=== PATIENT | female | born 1985 | race Hispanic/Latino ===

== ENCOUNTER 2018-05-16 14:56 | Outpatient (CLI) | payer OTHER ==
--- NOTE | 2018-05-16 19:30 | ULT ---
OBSTETRIC ULTRASOUND: 05/16/18 COMPARISON: None. HISTORY: 32-year-old female undergoing evaluation for anatomy. TECHNIQUE: Multiplanar coppola scale sonographic imaging of the gravid uterus obtained. FINDINGS: The cervix measures approximately 3.9-4 cm in length. A single intrauterine gestation is present dem onstrating a transverse presentation with heart to the maternal right. The placenta is located posteriorly, demonstrating no evidence for previa or abruption. The urinary bladder, umbilical cord, and umbilical cord insertion appear unremarkable. The feta l stomach, region of the kidneys, and four chamber heart view appear grossly unremarkable , partially obscured by motion. heart rate is 139 beats per minute. intracranial contents appear grossly unremarkable. Amniotic fluid index is 15.8 cm, within norm al limits. The spine appears unremarkable as well. nose and lips appear grossly unremarka ble. BIOMETRY: BPD 6.3 cm 25 weeks 2 days HC 22.9 cm 25 weeks 0 days AC 20.7 cm 25 weeks 2 days FL 4.7 cm 25 weeks 3 days Average age based on ultrasound is 25 weeks, 1 day. Estimated date of delivery is 08/28/18. Estimated weight is 793 grams plus/minus 117 grams. IMPRESSION: Single live intrauterine gestation as detailed above. POS: [facility]
== END 2018-05-16 14:57 | disposition home or self-care (01) ==
LOC: ULT 14:56
PROVIDERS: ATTEND Family Medicine
DX: O09.892 Supervision of other high risk pregnancies, second trimester (principal); Z3A.25 25 weeks gestation of pregnancy
CPT/HCPCS: 76805

== ENCOUNTER 2018-08-18 12:36 | Inpatient (IN) | payer OTHER, SELFPAY ==
[2018-08-18 13:16] VITALS: BMI 33.3
[2018-08-18] MEDS ORDERED: Ibuprofen 800 MG TAB PO PRN (13:16)
[2018-08-18] MEDS ORDERED: Lidocaine 1% (PF) 30 ML VIAL SC PRN (13:16)
[2018-08-18] MEDS ORDERED: Ondansetron PF 4 MG/2 ML Vial IVP PRN ×2 (13:16→15:58)
[2018-08-18] MEDS ORDERED: HYDROcodone/Acetaminophen 5/325 mg Tablet PO PRN ×3 (13:16→15:58)
[2018-08-18] MEDS ORDERED: NS w/ Oxytocin 10 units 500 ML IV SCH (13:16)
[2018-08-18] MEDS ORDERED: Promethazine HCl 25 MG/ML VIAL IM PRN (13:16)
[2018-08-18] MEDS ORDERED: Butorphanol Tartrate 1 MG/ML VIAL SLOW IVP PRN (13:16)
[2018-08-18] MEDS ORDERED: NS / Oxytocin 40 units/1000ml 1,000 ML IV PRN (13:16)
[2018-08-18] MEDS ORDERED: Butorphanol Tartrate 1 MG/ML VIAL ONE (13:17)
[2018-08-18 13:30] LABS: Hemoglobin 11.9 g/dL (12.0-16.0); Mean Corpuscular HGB CONC 31.7 g/dL (32.0-36.0); Mean Corpuscular Hemoglobin 28.3 pg (27.0-31.0); Mean Corpuscular Volume 89.5 fL (78.0-98.0); Mean Platelet Volume 8.8 fL (7.4-10.4); Platelet Count 224 thou/uL (130-400); RBC Distribution Width 13.8 % (11.5-14.5); Red Blood Cell (RBC) Count 4.19 mill/uL (4.20-5.40); White Blood Cell (WBC) Count 11.4 thou/uL (4.8-10.8)
[2018-08-18] MEDS ORDERED: Lactated Ringer's 1,000 ML IV SCH ×2 (13:30)
[2018-08-18] MEDS ORDERED: Misoprostol 200 MCG TAB ONE ×2 (13:53→16:57)
[2018-08-18] MEDS ORDERED: Carboprost 250 MCG/ML AMP ONE (13:53)
[2018-08-18] MEDS ORDERED: Methylergonovine 0.2 MG/ML VIAL ONE ×2 (13:54→17:30)
[2018-08-18 14:04] LABS: HBSAg Index 0.29 S/CO (0-0.99); Hep B Surf Ag Non-Reactive S/CO (NonReactive); Syphilis Antibody Nonreactive (Nonreactive); Syphilis Antibody Index 0.05 S/CO (<1.00 Non-Reactive)
[2018-08-18] MEDS ORDERED: Bisacodyl 10 MG SUPP PR PRN (15:58)
[2018-08-18] MEDS ORDERED: Benzocaine/Menthol 20-0.5% 60 ML CAN TOP PRN (15:58)
[2018-08-18] MEDS ORDERED: NS / Oxytocin 40 units/1000ml 1,000 ML IV SCH (15:58)
[2018-08-18] MEDS ORDERED: Milk Of Magnesia 30 ML UDCUP PO PRN (15:58)
[2018-08-18] MEDS ORDERED: Lanolin Ointment 7 GM TUBE TOP PRN (15:58)
[2018-08-18] MEDS: Ibuprofen 800 MG TAB PO SCH (16:28)
[2018-08-18] MEDS ORDERED: Misoprostol 200 MCG TAB PO SCH (17:15)
[2018-08-18] MEDS ORDERED: Misoprostol 200 MCG TAB PR SCH (17:15)
[2018-08-18] MEDS ORDERED: Methylergonovine 0.2 MG/ML VIAL IM SCH (18:45)
[2018-08-18] MEDS: Docusate Calcium (SURFAK) 240 MG CAP PO SCH (23:22)
[2018-08-19] MEDS: Ibuprofen 800 MG TAB PO SCH ×4 (00:18→15:15)
[2018-08-19 07:29] LABS: Hemoglobin 11.4 g/dL (12.0-16.0); Mean Corpuscular HGB CONC 32.2 g/dL (32.0-36.0); Mean Corpuscular Hemoglobin 28.6 pg (27.0-31.0); Mean Corpuscular Volume 88.9 fL (78.0-98.0); Mean Platelet Volume 8.5 fL (7.4-10.4); Platelet Count 216 thou/uL (130-400); RBC Distribution Width 14.2 % (11.5-14.5); White Blood Cell (WBC) Count 12.4 thou/uL (4.8-10.8)
[2018-08-19] MEDS: Ferrous Sulfate 325 MG TAB PO SCH ×2 (07:29→08:13)
[2018-08-19] MEDS: HYDROcodone/Acetaminophen 5/325 mg Tablet PO PRN ×2 (07:35→12:24)
[2018-08-19 07:54] VITALS: TEMP 97.6
[2018-08-19] MEDS: Docusate Calcium (SURFAK) 240 MG CAP PO SCH (08:41)
[2018-08-19] MEDS ORDERED: Prenatal Vitamin 1 TAB PO SCH (09:00)
[2018-08-19 11:50] VITALS: BP 111/57
== END 2018-08-19 17:20 | disposition home or self-care (01) | DRG 807 ==
LOC: L&D/OP 12:36 → L&D 13:20 → 3SW 08-19 00:03
PROVIDERS: ADMIT Family Medicine; ATTEND Family Medicine
PROC: 10E0XZZ Delivery of Products of Conception, External Approach (ICD-10-PCS; principal; 2018-08-18)
PROC: 0KQM0ZZ Repair Perineum Muscle, Open Approach (ICD-10-PCS; 2018-08-18)
DX: O70.1 Second degree perineal laceration during delivery (principal); Z37.0 Single live birth; Z3A.38 38 weeks gestation of pregnancy; Z67.40 Type O blood, Rh positive
CPT/HCPCS: 36415; 85027; 86780; 86850; 86900; 86901; 87340; 99285; J0595; J2001; J2210; J3490